=== PATIENT | male | born 1955 | race Caucasian/White ===

== ENCOUNTER 2018-05-17 19:36 | Emergency (ER) | payer OTHER ==
[2018-05-17] MEDS ORDERED: Sodium Chloride 0.9% 1,000 ML IV ONE (20:11)
[2018-05-17] MEDS ORDERED: Iohexol 240 (50 ml) PO ONE (20:11)
--- NOTE | 2018-05-17 20:12 | C.PDOC ---
History Of Present Illness 62yo male, comes to ER with complaints of intermittent abdominal pain x 1 month. He reports the pain is present in his epigastric and bilateral lower quadrant regions. Patient reports mild dysuria but denies any hematuria, vomiting, diarrhea. Time Seen by Provider: 05/17/18 20:00 Chief Complaint (Nursing): Abdominal Pain History Per: Patient History/Exam Limitations: no limitations Onset/Duration Of Symptoms: Intermittent Episodes, Persistent Current Symptoms Are (Timing): Still Present Location Of Pain/Discomfort: RLQ, Epigastric, LLQ Quality Of Discomfort: "Pain" Associated Symptoms: Urinary Symptoms. denies: Nausea, Vomiting, Diarrhea Additional History Per: Patient Past Medical History Reviewed: Historical Data, Nursing Documentation, Vital Signs Vital Signs: Last Vital Signs Temp 98.5 F 05/17/18 19:55 Pulse 85 05/17/18 19:55 Resp 16 05/17/18 19:55 BP 144/85 05/17/18 19:55 Pulse Ox 95 05/17/18 23:32 - Medical History PMH: HTN Surgical History: No Surg Hx Family History: States: No Known Family Hx - Social History Hx Alcohol Use: Yes Hx Substance Use: No - Immunization History Hx Influenza Vaccination: No Hx Pneumococcal Vaccination: No Review Of Systems Except As Marked, All Systems Reviewed And Found Negative. Gastrointestinal: Positive for: Abdominal Pain. Negative for: Nausea, Vomiting , Diarrhea Genitourinary: Positive for: Dysuria. Negative for: Hematuria Physical Exam - Physical Exam Appears: Non-toxic, No Acute Distress Skin: Normal Color Head: Normacephalic Eye(s): bilateral: Normal Inspection Neck: Supple Chest: Symmetrical Cardiovascular: Rhythm Regular Respiratory: Normal Breath Sounds Gastrointestinal/Abdominal: Soft, Tenderness (epigastric and bilateral lower quadrant), No Guarding, No Rebound Back: Normal Inspection Extremity: Normal ROM Neurological/Psych: Oriented x3 ED Course And Treatment - Laboratory Results Result Diagrams: 05/17/18 20:28 05/17/18 20:28 O2 Sat by Pulse Oximetry: 95 (RA) Pulse Ox Interpretation: Normal - CT Scan/US CT Abdomen/Pelvis Other Rad Studies (CT/US): Read By Radiologist, Radiology Report Reviewed CT/US Interpretation: FINDINGS: LUNG BASES: No significant abnormality seen. ABDOMEN: LIVER: Fatty infiltration of the liver. GALLBLADDER AND BILE DUCTS: No CT evidence of acute cholecystitis. No evidence of. significant biliary ductal dilatation. PANCREAS: No CT evidence of acute pancreatitis. SPLEEN: No acute abnormality of the spleen identified. ADRENALS: No acute abnormality of the adrenal glands identified. KIDNEYS AND URETERS: Areas of fluid density in the renal pelvises bilaterally, most likely. representing multiple peripelvic renal cysts given the appearance. Low density probable cortical cysts in the kidneys bilaterally. No evidence of significant hydroureter. No renal or ureteral stones. seen. STOMACH AND BOWEL: Findings highly suspicious for underlying congenital intestinal malrotation. Ligament of Treitz appears located in the right abdomen, rather than in the left abdomen as. expected. Proximal jejunal small bowel loops appear located in the right abdomen, rather than in the. left abdomen as expected. SMV is abnormally located, to the left of the SMA. Cecum is high and. midline in location. There is no evidence of acute volvulus or significant bowel obstruction at this. time. Otherwise, no significant abnormality of the bowel is identified. No evidence of diverticulitis or. colitis. PELVIS: APPENDIX: Normal appendix is not seen, however, there are no significant inflammatory changes. visualized in the expected location of the appendix to suggest appendicitis. Recommend clinical. correlation. BLADDER: Mild thickening of the bladder wall. REPRODUCTIVE: Prostate gland is enlarged. ABDOMEN and PELVIS: INTRAPERITONEAL SPACE: No evidence of free intraperitoneal air or fluid. BONES/JOINTS: Bilateral pars defects at L5. SOFT TISSUES: Fat-containing inguinal hernia on the right. VASCULATURE: See above. No evidence of abdominal aortic aneurysm or dissection. LYMPH NODES: No evidence of diffuse lymphadenopathy. IMPRESSION: - Findings suspicious for underlying congenital intestinal malrotation. There is NO evidence of. volvulus or bowel obstruction at this time. - Mild bladder wall thickening. This is a nonspecific finding, but can be seen with cystitis. Recommend clinical correlation. - See above for remaining findings. Medical Decision Making Medical Decision Making: Plan: -- Labs -- IV Fluids -- Toradol 30mg IV -- CT Abdomen/Pelvis w contrast Disposition Counseled Patient/Family Regarding: Diagnosis - Disposition Referrals: [facility] [Outside] Disposition: HOME/ ROUTINE Disposition Time: 23:50 Condition: STABLE Prescriptions: Nitrofurantoin Macrocrystals [Macrobid] 1 cap PO BID #14 cap Tamsulosin [Flomax] 0.4 mg PO DAILY #10 cap Instructions: Benign Prostatic Hyperplasia (Enlarged Prostate) (DC), Acute Cystitis (DC) Forms: [facility] (Sinhala), Gen Discharge Inst Kyrgyz Print Language: ICELANDIC - POA Present On Arrival: None - Clinical Impression Clinical Impression: Cystitis, BPH (benign prostatic hyperplasia) - Scribe Statement The provider has reviewed the documentation as recorded by the Danielibe Catalina Cabral Provider Attestation: All medical record entries made by the Danielibe were at my direction and personally dictated by me. I have reviewed the chart and agree that the record accurately reflects my personal performance of the history, physical exam, medical decision making, and the department course for this patient. I have also personally directed, reviewed, and agree with the discharge instructions and disposition.
[2018-05-17 20:31] LABS: BASO % 0.5 % (0.0-2.0); EOS % 0.4 % (0.0-4.0); HEMOGLOBIN 16.5 g/dL (12.0-18.0); LYMPH # 1.9 K/uL (1.0-4.3); MEAN CELL VOLUME 94.3 fL (80.0-94.0); MEAN CORPUSCULAR HEMOGLOBIN 32.6 pg (27.0-31.0); MEAN CORPUSCULAR HGB CONC 34.6 g/dL (33.0-37.0); MEAN PLATELET VOLUME 10.7 fL (7.2-11.7); MONO # 0.5 K/uL (0.0-0.8); MONO % 6.9 % (0.0-10.0); NEUT # 4.8 K/uL (1.8-7.0); NEUT % 66.2 % (50.0-75.0); RBC 5.05 Mil/uL (4.40-5.90); RED CELL DISTRIBUTION WIDTH 13.5 % (11.5-14.5); WHITE BLOOD COUNT 7.3 K/uL (4.8-10.8)
[2018-05-17 20:34] LABS: SQUAMOUS EPITHIAL < 1 /hpf (0-5); URINE BILIRUBIN NEGATIVE (NEGATIVE); URINE BLOOD NEGATIVE (NEGATIVE); URINE CLARITY Clear (Clear); URINE COLOR Yellow (YELLOW); URINE GLUCOSE (UA) NORMAL (Normal); URINE LEUKOCYTE ESTERASE NEG Leu/uL (Negative); URINE PROTEIN NEGATIVE (NEGATIVE); URINE UROBILINOGEN NORMAL mg/dL (0.2-1.0)
[2018-05-17] MEDS ORDERED: Iodixanol 320 MG/ML 100 ML BOTTLE IV ONE (20:35)
[2018-05-17] MEDS ORDERED: Iohexol 240 (50 ml) ONE (20:44)
[2018-05-17 21:21] LABS: ALB/GLOB RATIO 1.4 (1.0-2.1); ALBUMIN 4.3 g/dL (3.5-5.0); ALT/SGPT 69 U/L (21-72); AST/SGOT 44 U/L (17-59); BLOOD UREA NITROGEN 15 mg/dL (9-20); CALCIUM 8.3 mg/dl (8.6-10.4); GFR AFRICAN-AMERICAN > 60; GFR NON-AFRICAN AMERICAN > 60; LIPASE 235 U/L (23-300)
[2018-05-18 00:14] VITALS: BP 148/77; PULSE 81; RESP 20; TEMP 97.8; O2SAT 99
--- NOTE | 2018-05-18 11:24 | CT ---
Date of service: 05/17/2018 PROCEDURE: CT Abdomen and Pelvis with contrast HISTORY: Lower abdominal pain and tenderness COMPARISON: None. TECHNIQUE: CT scan of the abdomen and pelvis was performed after administration of intravenous contrast. Oral contrast was not administered. Coronal and sagittal reformatted images were obtained. Contrast dose: Radiation dose: Total exam DLP = 762.93 mGy-cm. This CT exam was performed using one or more of the following dose reduction techniques: Automated exposure control, adjustment of the mA and/or kV according to patient size, and/or use of iterative reconstruction technique. FINDINGS: LOWER THORAX: The visualized lungs are clear. LIVER: There is mild hepatomegaly and diffuse fatty infiltration in the liver. No gross lesion or ductal dilatation. GALLBLADDER AND BILE DUCTS: No calcified gallstones. PANCREAS: Normal in size with homogeneous enhancement. No gross lesion or ductal dilatation. SPLEEN: Normal in size and appearance. ADRENALS: There is a 1.9 x 1.8 cm hypo enhancing nodule in the right adrenal gland. There is mild thickening of the left adrenal gland without discrete nodule. KIDNEYS AND URETERS: Both kidneys are normal in size. There is a 2.4 cm simple cyst in the lower pole of the left kidney. Additional tiny low-attenuation lesions in both kidneys are too small to characterize by CT criteria. There is mild bilateral hydronephrosis. No obstructive uropathy. No nephrolithiasis. VASCULATURE: No aortic aneurysm. BOWEL: There is congenital intestinal malrotation. The small bowel loops are normal in caliber. There is fecalization of small bowel contents in the distal small bowel loops in the left abdomen. There is a variant anatomic with the cecum positioned anteriorly in the mid abdomen. There is moderate amount of stool in the colon. There is apparent mild circumferential mural thickening in the proximal transverse colon and left hemicolon including the sigmoid colon with mild pericolonic inflammatory changes. No bowel dilatation or obstruction. APPENDIX: Normal appendix. PERITONEUM: Unremarkable. No free fluid. No free air. LYMPH NODES: Unremarkable. No enlarged lymph nodes. BLADDER: There is apparent moderate circumferential mural thickening of the urinary bladder wall. REPRODUCTIVE: The prostate gland is normal in size. BONES: No acute fracture. There are bilateral pars interarticularis defects at L5 with grade 1 anterior listhesis of L5 on S1. There is severe degenerative disc disease at L5-S1. OTHER FINDINGS: The right IMPRESSION: 1. Congenital intestinal malrotation. No evidence of volvulus or bowel obstruction. 2. Apparent circumferential mural thickening in the proximal transverse colon and left hemicolon is nonspecific and could be related to underdistention however nonspecific infectious/inflammatory colitis is also a differential consideration. Clinical follow-up is advised. 3. Indeterminate 1.9 x 1.8 cm nodule in the right adrenal gland. A dedicated CT/MRI scan of the abdomen without and with intravenous contrast would be helpful for further characterization. 4. Mild hepatomegaly and fatty liver. 5. Renal cysts, the largest in the left lower pole measures 2.4 cm. A preliminary report was provided by [facility]. The right adrenal nodule was not described in the initial preliminary report. Please refer to the impression for further workup of this nodule.
== END 2018-05-18 00:14 | disposition home or self-care (01) ==
LOC: C.ER 19:36
DX: N30.90 Cystitis, unspecified without hematuria (principal); N40.0 Benign prostatic hyperplasia without lower urinary tract symptoms
CPT/HCPCS: 74177; 80053; 81001; 83690; 85025; 87086; 96374; 99285; J1885; J7030; Q9966; Q9967